=== PATIENT | female | born 1960 | race Caucasian/White ===

== ENCOUNTER 2016-03-26 10:23 | Day surgery (SDC) | payer MEDICAID ==
[~2016-03-26 10:23] MED LIST: BACITRACIN 50,000 UNITS/10 ML SYR IRR ONE; BUPIVACAINE 0.5% 30 ML SDV ONE; GENTAMICIN SULFATE 80 MG/2 ML VIAL ONE; LIDO/EPI 1% **for epidural** 30 ML SDV ONE; LR 1,000 ML IV ONE; ceFAZolin 1 GM/5 ML SYR ONE
[2016-03-26] MEDS ORDERED: LIDOCAINE 1% 5 ML SDV ONE (10:53)
[2016-03-26] MEDS ORDERED: NS 1,000 ML IV ONE (11:00)
[2016-03-26] MEDS ORDERED: CEFAZOLIN 1 GM/DEXTROSE/50 ML BAG IV ONE (11:23)
--- NOTE | 2016-03-26 11:40 | GHP ---
[f rep st] PREOP HISTORY AND PHYSICAL DATE OF ADMISSION: 03/26/2016 CHIEF COMPLAINT: Asymmetry of breast reconstruction. HISTORY OF PRESENTING COMPLAINT: The patient is a 55-year-old woman who underwent bilateral mastectomy and latissimus flap and implant reconstruction in 2007. She recently developed some capsular contracture and was operated on with replacement of her implant on the right side. Since that time, she has developed a little bit of recurrent contracture and a size asymmetry between the breasts has become more apparent. There is also the issue of both breasts having a little bit of ptosis and lateral displacement. PAST MEDICAL HISTORY: Is generally unremarkable. She is a healthy nonsmoker. SURGICAL HISTORY: Is as above, and she also had open cholecystectomy in 1982. MEDICATIONS: She is on bioidentical hormones. ALLERGIES: None known. PHYSICAL EXAMINATION: GENERAL: She is a healthy 55-year-old female. CARDIOVASCULAR: Heart sounds are normal. RESPIRATORY: Chest is clear with good air entry. IMPRESSION: She is fit for procedure. PLAN: Bilateral revision mastopexy of breast reconstruction, right capsulectomy and replacement of implant with a 360 mL silicone gel implant from the current 286 mL implant. /[id number]/MODL MTDD
[2016-03-26] MEDS ORDERED: MIDAZOLAM 2 MG/2 ML VIAL ONE (12:08)
[2016-03-26] MEDS ORDERED: fentaNYL 100 MCG/2 ML INJ ONE (12:57)
[2016-03-26] MEDS ORDERED: ONDANSETRON 4 MG/2 ML VIAL ONE (12:57)
[2016-03-26] MEDS ORDERED: DEXAMETHASONE 4 MG/ML VIAL ONE (12:57)
[2016-03-26] MEDS ORDERED: PROPOFOL/EMULSION 500 MG/50 ML BOTTLE IV ONE (12:57)
[2016-03-26] MEDS ORDERED: LIDOCAINE 2% JELLY 5 ML TUBE ONE (12:58)
[2016-03-26] MEDS ORDERED: LIDOCAINE 2% 100 MG/5 ML SYR IVP ONE (12:58)
[2016-03-26] MEDS ORDERED: BACITRACIN 50,000 UNITS/10 ML SYR IRR ONE (13:43)
--- NOTE | 2016-03-26 15:26 | GOP ---
[f rep st] OPERATIVE REPORT DATE OF OPERATION: 03/26/2016 SURGEON: Frederick Yancey MD PREOPERATIVE DIAGNOSIS: Asymmetry of reconstructed breasts. POSTOPERATIVE DIAGNOSIS: Asymmetry of reconstructed breasts. PROCEDURE PERFORMED: 1. Bilateral mastopexy, revision of breasts. 2. Right breast implant removal and replacement. FINDINGS: DESCRIPTION OF PROCEDURE: With the patient lying supine under general anesthesia, anterior chest reg ion prepped and draped in the usual fashion. Incisions were made according to the preoperative brennen ngs for modified mastopexy bilaterally. The skin was de-epithelialized and removed. Undermining as necessary for mobility was carried out of the skin. On the right side, dissection was taken down to the latissimus muscle, and dissection was taken down in line with muscle fibers to implant capsule, w hich was opened up with electrocautery. Existing 286 cc silicone gel implant was removed and replace d with a 350 cc [place] smooth surface moderate plus profile silicone gel implant. The lift incisions were then closed with 3-0 Stratafix running subcuticular sutures. The procedure was tolerated well. Estimated blood loss less than 10 mL. /[id number]/MODL
== END 2016-03-26 16:00 | disposition home or self-care (01) ==
LOC: FSGY 10:23
PROVIDERS: ATTEND Plastic Surgery
DX: T85.44XA Capsular contracture of breast implant, initial encounter (principal)
CPT/HCPCS: C1789; J0690; J1100; J2001; J2250; J2405; J2704; J3010

== ENCOUNTER → 2017-01-12 | Outpatient (CLI) | payer MEDICAID | LOC: FIMAGING 15:55 | PROVIDERS: ATTEND Internal Medicine Hematology & Oncology | DX: R07.9 Chest pain, unspecified (principal); Z85.3 Personal history of malignant neoplasm of breast ==

== ENCOUNTER 2017-02-01 14:38 | Emergency (ER) | payer MEDICAID ==
[2017-02-01 14:46] VITALS: RESP 18; O2SAT 97
[2017-02-01] MEDS ORDERED: SKIN ADHESIVE (DERMABOND) 1 EACH TP ONE (15:44)
--- NOTE | 2017-02-01 15:51 | EDPHY ---
H & P Stated Complaint: Sutures out Fri from face @[facility];oozing,didn't want to go to [place] Time Seen by Provider: 02/01/17 14:57 - Personal History Current Tetanus Diphtheria and Acellular Pertussis (TDAP): Yes Tetanus Vaccine Date: 2012 - Medical/Surgical History Hx Asthma: No Hx Chronic Respiratory Disease: No Hx Diabetes: No Hx Cardiac Disease: No Hx Renal Disease: No Hx Cirrhosis: No Hx Alcoholism: No Hx HIV/AIDS: No Hx Splenectomy or Spleen Trauma: No Other PMH: pmh- gastritis, breast CA. psh- B mastectomy - Social History Smoking Status: Never smoked Constitutional: Initial Vital Signs Temperature (C) 36.6 C 02/01/17 14:40 Heart Rate 78 02/01/17 14:40 Respiratory Rate 18 02/01/17 14:40 Blood Pressure 118/80 02/01/17 14:40 O2 Sat (%) 97 02/01/17 14:40 O2 Delivery Mode Room Air Allergies/Adverse Reactions: codeine Allergy (Verified 02/01/17 14:40) hydrocodone bitartrate [From Vicodin] Allergy (Verified 02/01/17 14:40) hydromorphone HCl [From Dilaudid] Allergy (Verified 02/01/17 14:40) MIGRAINES Home Medications: Medication Instructions Recorded NK [No Known Home Meds] 02/01/17 Medical Decision Making ED Course/Re-evaluation: CHIEF COMPLAINT: Recent skin cancer removal site is bleeding. HISTORY OF PRESENT ILLNESS: The patient is a 56 y/o female arriving for evaluation of intermittent bleeding at the site of skin cancer remover on her face 10 days ago. She was reevaluated on Wednesday, 3 days ago, and the provider placed SteriStrips along the incision excluding one site along the inferior aspect. From this open site she has experienced 5-6 episodes of mild bleeding over the last couple days. She contacted her provider at [place] and they recommended returning to their clinic, but she came here for evaluation instead. REVIEW OF SYSTEMS: A 10 point review of systems was performed and is negative with the exception of the elements mentioned in the history of present illness. PHYSICAL EXAM: HR, BP, O2 Sat, RR. Temp noted General Appearance: Alert, well hydrated, appropriate, and non-toxic appearing. Head: Atraumatic without scalp tenderness or obvious injury. Eyes: Pupils equal, round, reactive to light and accommodation, EOMI, no trauma , no injection. Nose: Atraumatic, no rhinorrhea, clear. Neck: Supple Respiratory: No distress Cardiovascular: Good capillary refill all extremities. Musculoskeletal: Normal active ROM of all extremities, atraumatic. Neurological: Alert, appropriate, and interactive. Nonfocal neuro. Skin: No rashes, good turgor, no nodules on palpation. Healing vertical incision along left cheek with Steristrips in place and small scab near inferior aspect of incision, no active bleeding. PAST MEDICAL HISTORY: Skin cancer removal 10 days ago SOCIAL HISTORY: Lives in [place] DIAGNOSTICS/PROCEDURES/CRITICAL CARE TIME: Scab removed and Dermabond applied to small area of dehiscence on patient's left cheek. Procedure performed by myself. DIFFERENTIAL DIAGNOSIS: The differential diagnosis for the patient's presentation including but was not limited to postsurgical bleeding, wound dehiscence, infection, other postoperative complication. MEDICAL DECISION MAKING: This is a 56 y/o female who presents for evaluation of mild intermittent bleeding from a small surgical incision on her cheek from skin cancer removal 10 days ago. No active bleeding on exam. Small scab removed by myself and dehiscence glued with Dermabond. Patient will be discharged with instructions to follow up with her plastic surgeon as planned. Standard return precautions given. Departure - Departure Disposition: Home, Routine, Self-Care Clinical Impression: Postoperative hemorrhage of skin following dermatologic procedure Condition: Good Instructions: Postoperative Bleeding (ED) Additional Instructions: Follow up as directed with your plastic surgeon. Referrals: Jessica Tsang [Primary Care Provider] - As per Instructions Report Scribed for: Wesly Charlton Report Scribed by: Rayne Howard Date of Report: 02/01/17 Time of Report: 15:52
[2017-02-01 16:06] VITALS: BP 129/89; PULSE 66; TEMP 98.2
== END 2017-02-01 16:06 | disposition home or self-care (01) ==
PROC: 0HQ1XZZ Repair Face Skin, External Approach (ICD-10-PCS; principal; 2017-02-01)
DX: L76.21 Postprocedural hemorrhage of skin and subcutaneous tissue following a dermatologic procedure (principal); Z85.3 Personal history of malignant neoplasm of breast; Z85.828 Personal history of other malignant neoplasm of skin

== ENCOUNTER 2017-03-22 09:06 | Emergency (ER) | payer MEDICAID ==
[2017-03-22 09:16] VITALS: TEMP 98.2; O2SAT 95
[2017-03-22] MEDS ORDERED: IPRATROPIUM/ALBUTEROL 3 ML DEYVIAL IH ONE (10:02)
--- NOTE | 2017-03-22 10:06 | EDPHY ---
H & P Smoking Status: Never smoked Time Seen by Provider: 03/22/17 09:32 HPI/ROS: CHIEF COMPLAINT: Cough HISTORY OF PRESENT ILLNESS: 56-year-old female presents to the emergency department by private vehicle complaining of severe cough for last 3 days. Patient has a history of bronchitis. She states that the cough has kept her up at night sweats last couple of nights. She does not receive flu shots. She describes overall total body aching. Denies difficulty breathing. Denies neck pain or abdominal pain. Vomiting. No diarrhea. No reported fever. No treatment at home. REVIEW OF SYSTEMS: Constitutional: No fever, no chills. Eyes: No double or blurry vision. ENT: No sore throat. Respiratory: Cough as above. no shortness of breath. Cardiac: No chest pain. Gastrointestinal: No abdominal pain, vomiting or diarrhea. Genitourinary: No dysuria. Musculoskeletal: No neck or back pain. Skin: No rashes. Neurological: No headache. (Sade Napier) Past Medical/Surgical History: Bronchitis (Sade Napier) Social History: Single and lives in [place] (Sade Napier) Physical Exam: General Appearance: Alert, no distress. Actively coughing. 36.8 temperature, 95% on room air. Eyes: Pupils equal and round. Extraocular motions are all intact. ENT: Mouth: Mucous membranes moist. Respiratory: Diffuse expiratory wheezing throughout. No rales. No respiratory distress. Cardiovascular: Regular rate and rhythm. Gastrointestinal: Abdomen is soft and nontender, no masses, no rebound or guarding, bowel sounds normal. Neurological: Alert and oriented x 3, cranial nerves II through XII grossly intact Skin: Warm and dry, no rashes. Musculoskeletal: Nontender to palpate along the cervical, thoracic or lumbar spine. Neck is supple. Extremities: Full range of motion and no peripheral edema. Psychiatric: Patient is oriented X 3, there is no agitation. (Sade Napier) Constitutional: Initial Vital Signs Temperature (C) 36.8 C 03/22/17 09:10 Heart Rate 102 H 03/22/17 09:10 Respiratory Rate 18 03/22/17 09:10 Blood Pressure 110/86 H 03/22/17 09:10 O2 Sat (%) 95 03/22/17 09:10 O2 Delivery Mode Room Air Allergies/Adverse Reactions: codeine Allergy (Verified 03/22/17 09:16) hydrocodone bitartrate [From Vicodin] Allergy (Verified 03/22/17 09:16) hydromorphone HCl [From Dilaudid] Allergy (Verified 03/22/17 09:16) MIGRAINES Home Medications: Medication Instructions Recorded Albuterol [Proventil Inhaler HFA 1 - 2 puffs IH Q4PRN PRN #1 mdi 03/22/17 (*)] Medical Decision Making ED Course/Re-evaluation: The patient was evaluated and managed by the physician's greenhouse assistant. My cosignature indicates that I reviewed the chart and I agree with the findings and plan of care as documented. I am the secondary supervising physician. (Viry Harris) 56-year-old female presents with ongoing cough. Patient was given a DuoNeb with relief. Influenza was negative. RSV was positive. The patient was around her granddaughters who are 1 years old. I recommended that the granddaughter's be followed by the clothing worker and bring them to the emergency department immediately if she develops difficulty breathing, fever, or any other concerns. (Sade Napier) Differential Diagnosis: Including but not limited to influenza, RSV, bronchitis, pneumonia, respiratory infection (Sade Napier) - Data Points Laboratory Results: 03/22/17 03/22/17 03/22/17 10:15 10:15 10:00 Nasal Influenza A PCR NEGATIVE FOR FLU A (NEGATIVE) Nasal Influenza B PCR NEGATIVE FOR FLU B (NEGATIVE) Influenza A,B Rapid Cancelled RSV (PCR) RSV DETECTED H TNP (NEGATIVE) Medications Given: Discontinued Medications Albuterol (Proventil Neb) 3 ml IH EDNOW ONE Stop: 03/22/17 11:06 Last Admin: 03/22/17 11:39 Dose: Not Given Albuterol/Ipratropium (Duoneb) 3 ml IH EDNOW ONE Stop: 03/22/17 10:03 Last Admin: 03/22/17 10:12 Dose: 3 ml Departure - Departure Disposition: Home, Routine, Self-Care Clinical Impression: RSV infection Acute bronchitis Qualifiers: Bronchitis organism: RSV Qualified Code(s): J20.5 - Acute bronchitis due to respiratory syncytial virus Condition: Good Instructions: Respiratory Syncytial Virus (ED), Acute Bronchitis (ED) Additional Instructions: Albuterol inhaler 2 puffs every 4 hr for 1 week and then as needed. Over-the- counter Delsym, dextromethorphan, to help suppress her cough to help you sleep at night. You should avoid close contact with small children especially those under the age to or anyone with respiratory problems such as asthma. Referrals: Kemi Berumen DO [Doctor of Osteopathy] - 2-3 days, call for appt. ( Primary care provider alkylation operator) Prescriptions: Albuterol [Proventil Inhaler HFA (*)] 1 - 2 puffs IH Q4PRN PRN #1 mdi PRN Reason: Short Of Breath/Dyspnea
[2017-03-22] MEDS ORDERED: ALBUTEROL 3 ML DEYVIAL IH ONE (11:05)
[2017-03-22 11:50] VITALS: BP 102/96; PULSE 106; RESP 16
== END 2017-03-22 11:50 | disposition home or self-care (01) ==
DX: J20.5 Acute bronchitis due to respiratory syncytial virus (principal)

== ENCOUNTER → 2017-11-04 | Outpatient (CLI) | payer MEDICAID | LOC: FIMAGING 13:53 | PROVIDERS: ATTEND Obstetrics & Gynecology | DX: R10.32 Left lower quadrant pain (principal) ==